=== PATIENT | female | born 1960 | race Hispanic/Latino ===

== ENCOUNTER 2019-08-25 05:59 | Observation (INO) | payer OTHER ==
[2019-08-24 10:23] VITALS: BP 146/73
[2019-08-24 10:25] LABS: BASOPHILS % (AUTO) 1.4 % (0.0-5.0); EOSINOPHILS % (AUTO) 3.5 % (0.0-8.0); HEMATOCRIT 38.9 % (36-48); LYMPHOCYTES % (AUTO) 35.9 % (21.0-51.0); MEAN CORPUSCULAR HGB CONC 34.6 g/dL (32.0-36.0); MEAN CORPUSCULAR VOLUME 89.5 fL (79-99); NEUTROPHILS % (AUTO) 46.2 % (40.0-77.0); PLATELET COUNT (AUTO) 186 K/uL (130-400); RED BLOOD CELL COUNT(AUTO) 4.34 MIL/uL (4.00-5.50); WHITE BLOOD COUNT (AUTO) 3.8 K/uL (4.8-10.8)
[2019-08-24 10:26] LABS: APPEARANCE,URINE Clear (CLEAR); BILIRUBIN,URINE Negative (NEGATIVE); COLOR,URINE Yellow (YELLOW); GLUCOSE, URINE (UA) Negative (NEGATIVE); KETONES,URINE Negative (NEGATIVE); LEUKOCYTE ESTERASE ,URINE Negative (NEGATIVE); NITRATE,URINE Negative (NEGATIVE); OCCULT BLOOD,URINE Negative (NEGATIVE); PROTEIN,URINE Negative (NEGATIVE)
[2019-08-24 10:40] LABS: PARTIAL THROMBOPLASTIN TIME 25.9 SEC (26.3-35.5); PROTHROMBIN TIME 10.3 SEC (9.6-11.6)
[2019-08-24 10:48] LABS: CREATININE 0.8 mg/dL (0.5-1.5); POTASSIUM 4.5 mmol/L (3.5-5.1)
[~2019-08-25] VITALS: Ht 160 cm; Wt 74.0 kg
[2019-08-25] VITALS (12 sets, daily range): BP systolic 125–179; BP diastolic 65–89
[~2019-08-25 05:59] MED LIST: BACL10TA PO; DULA0.75 SQ
[2019-08-25] MEDS ORDERED: SODIUM CHLORIDE 0.9% 1000ML 1,000 ML IV ONE (06:15)
[2019-08-25] MEDS ORDERED: ASPI-555 PO (07:40)
[2019-08-25] MEDS ORDERED: PITA2TAB2 PO (07:41)
[2019-08-25] MEDS ORDERED: SODIUM BICARB 50MEQ 50ML VIAL ONE (07:48)
[2019-08-25] MEDS ORDERED: IOHEXOL 350 MG/ML 100ML INFUS..BTL IV ONE (07:48)
[2019-08-25] MEDS ORDERED: LIDOCAINE HCL 2% 20ML ONE (07:48)
[2019-08-25] MEDS ORDERED: NITROGLYCERIN 5 MG/ML 10 ML VIAL IV ONE (07:48)
[2019-08-25] MEDS ORDERED: IOHEXOL-350 50ML VIAL IV ONE (07:48)
[2019-08-25] MEDS ORDERED: MEPERIDINE-PF 25 MG/ML SYG ONE ×2 (08:59→09:31)
[2019-08-25] MEDS ORDERED: MIDAZOLAM HCL 1 MG/ML 2ML VIAL ONE ×2 (08:59→09:31)
[2019-08-25] MEDS ORDERED: HEPARIN SODIUM 1000UNIT/ML 10ML VIAL ONE (09:29)
[2019-08-25] MEDS ORDERED: ASPIRIN 81MG TAB.CHEW ONE (09:54)
[2019-08-25] MEDS ORDERED: PRASUGREL HCL 10 MG TABLET ONE (09:54)
[2019-08-25] MEDS: SODIUM CHLORIDE 0.9% 1000ML 1,000 ML IV SCH ×2 (10:01→22:36)
[2019-08-25] MEDS ORDERED: ONDANSETRON HCL 4 MG/2 ML VIAL IVP PRN (10:15)
[2019-08-25] MEDS ORDERED: DEXTROSE 50%-WATER 50 ML DISP.SYRIN IV PRN ×2 (10:15→13:45)
[2019-08-25] MEDS ORDERED: ACETAMINOPHEN-CODEINE 300/30MG TAB PO PRN ×2 (10:15)
--- NOTE | 2019-08-25 10:45 | NUR ---
ARRIVAL TO FLOOR ROOM 201 S/P [facility]. RIGHT GROIN WITH DRESSING IN PLACE CLEAN DRY AND INTACT, NO HEMATOMA NO OOZING NOTED. BEDREST IN PROGRESS X6 HRS, PT AND FAMILY AGREE TO COMPLY. CALL LIGHT WITHIN REACH.
[2019-08-25] MEDS ORDERED: INSULIN HUMULIN R 100 UNIT/ML 3ML SQ SCH (11:30)
[2019-08-25] MEDS: ALPRAZOLAM 0.25 MG TABLET PO SCH ×2 (13:18→19:24)
[2019-08-25] MEDS ORDERED: GLUCAGON 1MG KIT 1 MG ML IM PRN (13:45)
[2019-08-25] MEDS: INSULIN HUMULIN R 100 UNIT/ML 3ML SQ SCH ×2 (16:21→21:00)
--- NOTE | 2019-08-25 16:30 | NUR ---
BEDREST COMPLETED ASSISTED PATIENT TO SEATED POSITION IN BED. RIGHT GROIN IS WNL. NO COMPLAINTS, SPOUSE IS AT BEDSIDE.
[2019-08-25] MEDS ORDERED: FAMOTIDINE 20MG TAB 20 MG TAB ONE (19:16)
[2019-08-25] MEDS: FAMOTIDINE 20MG TAB 20 MG TAB PO SCH (19:25)
--- NOTE | 2019-08-25 20:00 | NUR ---
PT RIGHT GROIN IS SOFT, NON-TENDER. NO DRAINAGE NOTED. PERCLOSE DRESSING IN PLACE. PT AMBULATING. CONTINUES ON IV FLUIDS. NO DISTRESS NOTED. PT S/P LHC. CALL LIGHT IN REACH. NO CONCERNS AT THIS TIME.
[2019-08-26 03:32] VITALS: BP 141/63
[2019-08-26 03:39] LABS: BASOPHILS % (AUTO) 0.8 % (0.0-5.0); EOSINOPHILS % (AUTO) 3.1 % (0.0-8.0); HEMATOCRIT 35.4 % (36-48); LYMPHOCYTES % (AUTO) 30.2 % (21.0-51.0); MEAN CORPUSCULAR HGB CONC 33.9 g/dL (32.0-36.0); MEAN CORPUSCULAR VOLUME 88.4 fL (79-99); NEUTROPHILS % (AUTO) 55.9 % (40.0-77.0); PLATELET COUNT (AUTO) 179 K/uL (130-400); WHITE BLOOD COUNT (AUTO) 5.2 K/uL (4.8-10.8)
[2019-08-26 03:53] LABS: CREATININE 0.7 mg/dL (0.5-1.5); POTASSIUM 3.9 mmol/L (3.5-5.1)
[2019-08-26] MEDS: INSULIN HUMULIN R 100 UNIT/ML 3ML SQ SCH (06:34)
--- NOTE | 2019-08-26 07:20 | NUR ---
DR. Elle RAMIREZ IN ROOM SPEAKING WITH PT. RE:PLAN OF CARE AND DISCHARGE DISPOSITION. QUESTIONS ANSWERED BY DR. Elle RAMIREZ.
[2019-08-26 08:06] VITALS: BP 146/64
[2019-08-26] MEDS: FAMOTIDINE 20MG TAB 20 MG TAB PO SCH (08:30)
[2019-08-26] MEDS: ALPRAZOLAM 0.25 MG TABLET PO SCH (08:32)
[2019-08-26] MEDS ORDERED: PRAS10TA6 PO (08:47)
[2019-08-26] MEDS ORDERED: **HM**(Dulaglutide (Trulicity) 0.75 MG SQ SCH (09:00)
[2019-08-26] MEDS ORDERED: PRASUGREL HCL 10 MG TABLET PO SCH (09:00)
[2019-08-26] MEDS ORDERED: ASPIRIN 81 MG EC TAB PO SCH (09:00)
[2019-08-26] MEDS ORDERED: BACLOFEN 10 MG TABLET PO SCH (09:00)
[2019-08-26] MEDS ORDERED: PITAVASTATIN CALCIUM 2 MG PO SCH (09:00)
[2019-08-26] MEDS ORDERED: ACETAMINOPHEN 325 MG TAB PO PRN (09:45)
--- NOTE | 2019-08-26 11:20 | NUR ---
HL REMOVED, CATHETER INTACT. DISCHARGE INSTRUCTIONS GIVEN TO PT. AND PT.'S SPOUSE AT BEDSIDE; VERBALIZED MUTUAL UNDERSTANDING.
--- NOTE | 2019-08-26 11:38 | NUR ---
DISCHARGED HOME VIA W/C WITH BELONGINGS ACCOMPANIED BY SHIRA DIOR AND PT.'S SPOUSE.
== END 2019-08-26 11:38 | disposition home or self-care (01) ==
LOC: DAH 05:59 → 2AH 06:00 → DAH 06:00
PROVIDERS: ADMIT Internal Medicine; ATTEND Internal Medicine
DX: I25.119 Atherosclerotic heart disease of native coronary artery with unspecified angina pectoris (principal); E11.9 Type 2 diabetes mellitus without complications; M05.30 Rheumatoid heart disease with rheumatoid arthritis of unspecified site; R00.1 Bradycardia, unspecified; Z98.51 Tubal ligation status; Z79.82 Long term (current) use of aspirin; Z79.899 Other long term (current) drug therapy
CPT/HCPCS: 36415 ×2; 71045; 80048 ×2; 80061; 81003; 82948 ×5; 85025 ×2; 85610; 85730; 93005; 93458; A4215; A4216; A4221; A4222; A4223 ×3; A4606; A4663; C1760; C1769; C1874; C1887; C1894; C9600; G0378 ×26; J1644 ×2; J2175 ×2; J2250 ×2; J3490 ×3; J7030 ×2; Q9965; Q9967 ×2; 99156; 99157

== ENCOUNTER → 2024-07-23 | Outpatient (CLI) | payer OTHER ==
[~2024-07-23] MED LIST changes: +ASPI-556 PO; +PITA2TAB2 PO; +PRAS10TA6 PO
[2024-07-23 11:09] LABS: BILIRUBIN,TOTAL 0.4 mg/dL (0.2-1.0); POTASSIUM 5.2 mmol/L (3.5-5.1); TOTAL PROTEIN, SERUM 8.1 g/dL (6.0-8.3)
== END | disposition home or self-care (01) ==
LOC: LAB 10:08
PROVIDERS: ATTEND Student in an Organized Health Care Education/Training Program
DX: E78.5 Hyperlipidemia, unspecified (principal); R07.9 Chest pain, unspecified
CPT/HCPCS: 36415; 80053; 80061

== ENCOUNTER → 2024-07-27 | Outpatient (CLI) | payer OTHER ==
[~2024-07-27] MED LIST changes: +IOHEXOL 350 MG/ML 100ML INFUS..BTL IV ONE; +metoPROLOL tartRATE 1 MG/ML 5ML VIAL IV ONE
== END | disposition home or self-care (01) ==
LOC: RAH 07:35
PROVIDERS: ATTEND Student in an Organized Health Care Education/Training Program
DX: I25.10 Atherosclerotic heart disease of native coronary artery without angina pectoris (principal); R07.9 Chest pain, unspecified; M47.815 Spondylosis without myelopathy or radiculopathy, thoracolumbar region
CPT/HCPCS: 75574; J3490; Q9967

== ENCOUNTER → 2024-12-30 | Outpatient (CLI) | payer OTHER ==
[~2024-12-30] MED LIST changes: -IOHEXOL 350 MG/ML 100ML INFUS..BTL IV ONE; -metoPROLOL tartRATE 1 MG/ML 5ML VIAL IV ONE
--- NOTE | 2025-01-06 13:11 | HMCSR ---
APPROVED REPORT Laterality: Bilateral Indications i73.9 VELOCITY AND DOPPLER WAVEFORM ANALYSIS TEMPER MILL ROLLER (R) 121.6cm/sec, Biphasic, TEMPER MILL ROLLER (L) 127.0cm/sec, Biphasic, Prof Fem Art. (R) 70.1cm/sec, Biphasic, Prof Fem Art. (L) 72.6cm/sec, Biphasic, Fem Art Prox. (R) 126.2cm/sec, Biphasic, Fem Art Prox. (L) 116.9cm/sec, Biphasic, Fem Art Mid. (R) 104.1cm/sec, Biphasic, Fem Art Mid. (L) 93.0cm/sec, Biphasic, Fem Art Dist (R) 93.3cm/sec, Biphasic, Fem Art Dist. (L) 104.2cm/sec, Biphasic, Pop Art(AK) (R) 96.2cm/sec, Biphasic, Pop Art (AK) (L) 103.0cm/sec, Biphasic, Pop Art (Fossa)(R) 121.5cm/sec, Biphasic, Pop Art (Fossa) (L) 85.7cm/sec, Biphasic, Pop Art(BK) (R) 100.7cm/sec, Biphasic, Pop Art (BK) (L) 114.6cm/sec, Biphasic, CONSERVATION ENGINEER Prox. (R) 115.8cm/sec, Biphasic, CONSERVATION ENGINEER Prox. (L) 114.6cm/sec, Biphasic, CONSERVATION ENGINEER Mid. (R) 130.8cm/sec, Biphasic, CONSERVATION ENGINEER Mid. (L) 110.0cm/sec, Biphasic, CONSERVATION ENGINEER Dist. (R) 116.9cm/sec, Biphasic, CONSERVATION ENGINEER Dist. (L) 120.1cm/sec, Biphasic, Per Art Prox. (R) 82.4cm/sec, Biphasic, Per Art Prox. (L) 58.7cm/sec, Biphasic, Per Art Mid. (R) 53.3cm/sec, Biphasic, Per Art Mid. (L) 80.7cm/sec, Biphasic, Per Art Dist. (R) 44.3cm/sec, Biphasic, Per Art Dist. (L) 64.2cm/sec, Biphasic, ANDIE Prox. (R) 92.6cm/sec, Biphasic, ANDIE Prox. (L) 81.6cm/sec, Biphasic, ANDIE Mid. (R) 94.9cm/sec, Biphasic ANDIE Mid. (L) 92.4cm/sec, Biphasic, ANDIE Dist. (R) 142.2cm/sec, Biphasic, ANDIE Dist. (L) 100.5cm/sec, Biphasic, Technologist Impression Diffuse atherosclerosis throughout the bilateral lower extremities. Multiphasic waveforms seen in bilateral lower extremities. Conclusion Diffuse atherosclerosis throughout the bilateral lower extremities. Multiphasic waveforms seen in bilateral lower extremities. Conclusion Diffuse atherosclerosis throughout the bilateral lower extremities. Multiphasic waveforms seen in bilateral lower extremities.
== END | disposition home or self-care (01) ==
LOC: SHCH 14:25
PROVIDERS: ATTEND Student in an Organized Health Care Education/Training Program
DX: I70.203 Unspecified atherosclerosis of native arteries of extremities, bilateral legs (principal)
CPT/HCPCS: 93925

== ENCOUNTER → 2025-02-08 | Outpatient (CLI) | payer OTHER ==
[~2025-02-08] MED LIST changes: +IOHEXOL 350 MG/ML 100ML INFUS..BTL IV ONE
--- NOTE | 2025-02-08 15:03 | HMCIMG ---
CT CARDIAC ANGIO W/CONT. CCTA HISTORY: Chest pain6 COMPARISON: 07/27/2024 TECHNIQUE: Multiple sequential axial images of the chest were obtained along with the CT angiogram of the chest study. Patient was given 100 cc of Omnipaque through intravenous route. FINDINGS: There is no evidence of pulmonary nodule or parenchymal disease. No pleural effusion or pericardial effusion is seen. There is no evidence of pneumothorax. There are normal size mediastinal and hilar lymph nodes. The heart is not enlarged. Degenerative changes of the thoracolumbar spine are present. Fatty changes of the liver are noted. IMPRESSION: 1. No evidence of pulmonary nodule or effusion is seen. Please see CT angiogram report of coronary arteries.
== END | disposition home or self-care (01) ==
LOC: RAH 11:03
PROVIDERS: ATTEND Student in an Organized Health Care Education/Training Program
DX: I25.10 Atherosclerotic heart disease of native coronary artery without angina pectoris (principal); R07.9 Chest pain, unspecified; K76.0 Fatty (change of) liver, not elsewhere classified; M47.815 Spondylosis without myelopathy or radiculopathy, thoracolumbar region
CPT/HCPCS: 75574; Q9967